=== PATIENT | male | born 1945 | race Caucasian/White ===

== ENCOUNTER 2016-09-26 11:11 | Emergency (ER) | payer MEDICARE, OTHER ==
[2016-09-26] MEDS ORDERED: Sodium Chloride 0.9% 10 ML Syringe FLUSH PRN (12:05)
[2016-09-26] MEDS ORDERED: Ondansetron 4 MG/2 ML SDV IVPUSH ONE (12:06)
[2016-09-26] MEDS ORDERED: Sodium Chloride 0.9% 1,000 ML IV ONE ×2 (12:06→13:36)
[2016-09-26] MEDS ORDERED: HYDROmorphone 1 MG/ML Syringe IVPUSH ONE ×2 (12:06→14:19)
[2016-09-26] MEDS ORDERED: Ketorolac 30 MG/ML SDV IVPUSH ONE (12:07)
[2016-09-26 12:52] LABS: CHLORIDE,CL 104 mmol/L (98-107); SODIUM,NA 140 mmol/L (136-145)
[2016-09-26] MEDS ORDERED: Tamsulosin 0.4 MG Cap.ER PO ONE (14:20)
[2016-09-26] MEDS ORDERED: Take Home: Acetaminophen/HYDROcodone 325-10 MG, 5 Tab Pack PO ONE (14:21)
[2016-09-26 14:46] VITALS: BP 170/81
--- NOTE | 2016-09-26 21:22 | ER ---
Date of Service: 09/26/2016 SUBJECTIVE: Ren presents to the emergency room with right-sided flank pain. The patient states this started last night. The patient states that he has a history of kidney stones and states the discomfort is similar to what he has experienced in the past. He states the discomfort radiates into the right side of his abdomen. States he is not experiencing any fever, chills, diarrhea, or hematuria. PAST MEDICAL HISTORY: Dyslipidemia. MEDICATIONS: Aspirin, Zocor, and Klonopin. ALLERGIES: NKDA. REVIEW OF SYSTEMS: General: No fever or chills. HEENT: No sore throat, rhinorrhea, congestion. Respiratory: No shortness breath. Cardiac: Denies any substernal chest pain. No jaw, arm, neck, or back pain. GI: Please see history of present illness. Denies any melena, hematochezia, or hematemesis. : Please see history of present illness. Denies any dysuria. Musculoskeletal: No myalgias or arthralgias. Neurologic: No fainting, blackouts, or lightheadedness. PHYSICAL EXAMINATION: General: This is a 70-year-old male patient, in no acute distress. Vital Signs: Initially blood pressure was 188/81, heart rate 64, respiratory rate 16, O2 saturations 98%. Skin: Warm, pink, and dry. HEENT: Head is normocephalic, atraumatic. Mouth, oral mucosa is moist. Lungs: Clear to auscultation. Heart: Regular rate and rhythm. Abdomen: Soft, nontender. There is no hepatosplenomegaly or masses noted. Extremities: Without edema. Neurologic: He is alert and oriented, answers all questions appropriately. His speech is fluent. His gait is within normal limits. LABORATORY DATA: WBCs 10.4, hemoglobin is 14.5, platelets are 310. Chemistry; sodium is 140, potassium is 4.2, chloride is 104, bicarb is 25, BUN is 19, creatinine is 1.3. GFR is 54, glucose is 124, calcium is 9.8, corrected calcium is 9.3, total bilirubin is 0.6, AST is 13, ALT is 27, alkaline phosphatase 118, total protein is 8.1, albumin is 4.6. Urinalysis reveals a slightly cloudy specimen. Specific gravity after a liter of normal saline is 1.020. Negative for protein, glucose, and ketones, did have trace of occult blood. Negative for nitrites and bilirubin, also negative for leukocyte esterase. Did have 5-10 rbc's per high-power field. CT scan of the patient's abdomen and pelvis was obtained. He did have evidence of 4 mm obstructing ureteral stone at the right UVJ. There was also mild hydronephrosis associated with this. EMERGENCY ROOM COURSE: IV access was established. He was given 2 L of normal saline IV and was given Zofran 4 mg IV for nausea and Toradol 30 mg IV for pain. He was also given Dilaudid 1 mg in 2 separate doses for further pain control. He stated that his pain was down to near 0 at the time of discharge. ASSESSMENT: A 4 mm right-sided kidney stone with mild hydronephrosis. PLAN: The patient was started on Flomax 0.4 mg IV and he has Percocet at home from a previous surgery, which he will use for pain. He was given a strainer to strain his urine, collect the stones and bring to the clinic for analysis. He is to return if the discomfort is unrelenting or if he is continuing to have discomfort after 3 to 4 days. All questions were answered. MWK: 09/26/2016 15:53:04 MODL: 09/26/2016 21:16:20 /[id number]
== END 2016-09-26 15:25 | disposition home or self-care (01) ==
LOC: VM.ED 11:11
DX: N13.2 Hydronephrosis with renal and ureteral calculous obstruction (principal); Z79.82 Long term (current) use of aspirin
CPT/HCPCS: 74176; 80053; 81001; 85025; 96361; 96374; 96375; 96376; 99284; A9270; J1170; J1885; J2405; J7030

== ENCOUNTER 2017-02-13 11:41 | Emergency (ER) | payer MEDICARE, OTHER ==
[2017-02-13] MEDS ORDERED: Sodium Chloride 0.9% 10 ML Syringe FLUSH PRN (11:52)
[2017-02-13] MEDS ORDERED: Sodium Chloride 0.9% 1,000 ML IV ONE (11:53)
[2017-02-13] MEDS ORDERED: Ketorolac 30 MG/ML SDV IVPUSH ONE (11:53)
[2017-02-13] MEDS ORDERED: diphenhydrAMINE 50 MG/ML SDV IVPUSH ONE (11:54)
[2017-02-13] MEDS ORDERED: Prochlorperazine 10 MG/2 ML SDV IV ONE (11:55)
[2017-02-13 12:30] LABS: CHLORIDE,CL 105 mmol/L (98-107); SODIUM,NA 142 mmol/L (136-145)
[2017-02-13 12:51] VITALS: BP 158/76
[2017-02-13] MEDS ORDERED: Acetaminophen/Butalbital/Caffeine 325-50-40 MG Tab ONE (13:25)
--- NOTE | 2017-02-14 12:48 | EDM.PDOC ---
ED HPI GENERAL MEDICAL PROBLEM - General Chief Complaint: Headache Stated Complaint: SPINAL TAP DONE ON TUESDAY HAS BAD HEADACHE Time Seen by Provider: 02/13/17 11:48 Source of Information: Reports: Patient, Family History Limitations: Reports: No Limitations - History of Present Illness INITIAL COMMENTS - FREE TEXT/NARRATIVE: Pt. persented to [facility] ER with headache for approx. 3 days. Pt. states that he underwent a diagnostic lumbar puncture at [facility] in [place], [place]. Pt. is experiencing autonomic dysfunction (positional tachycardia and bradycardia, episodes of hypotension) and is currently being worked up for this. Pt. states that approx. 1 hour after the lumbar puncture, she began to experience severe headache. He states that the discomfort has been constant and he is not experiencing any fever or chills, neck stiffness, or weakness. He states that he has increased his intake of caffeine but it has not helped his headache. Onset Date: 02/17/17 Duration: Constant Location: Reports: Head Severity: Severe Improves with: Reports: None Associated Symptoms: Reports: No Other Symptoms headache Pain Score (Numeric/FACES): 0 - Related Data Allergies Allergy/AdvReac Type Severity Reaction Status Date / Time No Known Allergies Allergy Verified 02/13/17 11:51 Home Meds: Home Meds Aspirin 81 mg PO DAILY 09/26/16 [History] ClonazePAM [KlonoPIN] 1 mg PO BEDTIME 09/26/16 [History] Simvastatin [Zocor] 20 mg PO DAILY 09/26/16 [History] Acetaminophen/Butalbital/Caff [Fioricet 325-50-40 MG] 1 tab PO Q4H #4 tablet 12/23 [Rx] Past Medical History - Past Health History Medical/Surgical History: Denies Medical/Surgical History Cardiovascular History: Reports: High Cholesterol Neurological History: Reports: Other (See Below) Other Neuro History: autonomic dysfunction - Past Surgical History Musculoskeletal Surgical History: Reports: Knee Replacement Other Musculoskeletal Surgeries/Procedures:: Total knees bilaterally Social & Family History - Tobacco Use Smoking Status *Q: Never Smoker - Recreational Drug Use Recreational Drug Use: No ED ROS GENERAL - Review of Systems Review Of Systems: See Below Constitutional: Reports: No Symptoms HEENT: Reports: No Symptoms Respiratory: Reports: No Symptoms Cardiovascular: Reports: No Symptoms Endocrine: Reports: No Symptoms GI/Abdominal: Reports: Nausea : Reports: No Symptoms Musculoskeletal: Reports: No Symptoms Skin: Reports: No Symptoms Neurological: Reports: Headache Psychiatric: Reports: No Symptoms Hematologic/Lymphatic: Reports: No Symptoms - Physical Exam Exam: See Below General Appearance: Alert, WD/WN, No Apparent Distress Eye Exam: Bilateral Eye: EOMI, Normal Fundi, Normal Inspection, PERRL Ears: Normal External Exam, Normal Canal, Hearing Grossly Normal Nose: Normal Inspection, Normal Mucosa, No Blood Throat/Mouth: Normal Inspection, Normal Lips, Normal Teeth, Normal Gums, Normal Oropharynx, Normal Voice, No Airway Compromise Head Exam: Atraumatic, Normocephalic Neck: Normal Inspection, Supple, Non-Tender, Full Range of Motion Respiratory/Chest: No Respiratory Distress, Lungs Clear, Normal Breath Sounds, No Accessory Muscle Use, Chest Non-Tender Cardiovascular: Normal Peripheral Pulses, Regular Rate, Rhythm, No Edema, No JVD GI/Abdominal: Normal Bowel Sounds, Soft, Non-Tender, No Organomegaly, No Distention, No Mass Rectal (Males) Exam: Deferred Neuro Exam (Abbreviated): Alert, Oriented, CN II-XII Intact, Normal Cognition, Normal Gait, Normal Reflexes, No Motor/Sensory Deficits, Slow to Respond DTR: 2+: Bicep (R), Bicep (L), Tricep (R), Tricep (L), Patella (R), Patella (L) , Achilles (R), Achilles (L) Back Exam: Normal Inspection, Full Range of Motion Extremities: Normal Inspection, Normal Range of Motion, Non-Tender, No Pedal Edema Psychiatric: Normal Affect, Normal Mood Skin Exam: Warm, Dry, Intact, Normal Color, No Rash Course - Vital Signs Last Recorded V/S: Last Vital Signs Temp 35.3 C 02/13/17 11:48 Pulse 69 02/13/17 12:50 Resp 18 02/13/17 11:48 BP 158/76 H 02/13/17 12:50 Pulse Ox 93 L 02/13/17 12:50 - Orders/Labs/Meds Labs: Laboratory Tests 02/13/17 02/13/17 Range/Units 12:03 12:03 WBC 8.3 (4.0-10.0) x10^3/uL RBC 4.78 (4.5-6.0) x10^6/uL Hgb 13.8 L (14.0-18.0) g/dL Hct 41.1 (40.0-52.0) % MCV 86.0 (78.0-93.0) fL MCH 28.9 (26.0-32.0) pg MCHC 33.6 (32.0-36.0) g/dL RDW Coeff of Marley 13.9 (10.0-15.0) % Plt Count 245 (130-400) x10^3/uL Neut % (Auto) 68.3 (50.0-80.0) % Lymph % (Auto) 21.0 L (25.0-50.0) % [place] % (Auto) 9.3 (2.0-11.0) % Eos % (Auto) 1.2 (0.0-4.0) % Baso % (Auto) 0.2 (0.2-1.2) % Sodium 142 (136-145) mmol/L Potassium 4.2 (3.5-5.1) mmol/L Chloride 105 (98-107) mmol/L Carbon Dioxide 28 (21-32) mmol/L BUN 21 H (7-18) mg/dL Creatinine 1.2 (0.70-1.30) mg/dL Est Cr Clr Drug Dosing TNP Estimated GFR (MDRD) 60 Glucose 127 H (74-106) mg/dL Calcium 9.1 (8.5-10.1) mg/dL Corrected Calcium 9.26 (8.5-10.1) mg/dL Total Bilirubin 0.5 (0.2-1.0) mg/dL AST 10 L (15-37) U/L ALT 19 (16-63) U/L Alkaline Phosphatase 81 (46-116) U/L C-Reactive Protein < 0.2 (<=0.9) mg/dL Total Protein 7.0 (6.4-8.2) g/dL Albumin 3.8 (3.4-5.0) g/dL Globulin 3.2 Albumin/Globulin Ratio 1.19 Meds: Medications Discontinued Medications Generic Name Dose Route Start Last Admin Trade Name Freq PRN Reason Stop Dose Admin Diphenhydramine HCl 50 mg 02/13/17 11:54 02/13/17 12:10 Benadryl IVPUSH 02/13/17 11:55 50 mg ONETIME ONE Administration Sodium Chloride 1,000 mls @ 1,000 mls/hr 02/13/17 11:53 02/13/17 12:07 Normal Saline IV 02/13/17 12:52 1,000 mls/hr .BOLUS ONE Administration Chlorpromazine HCl 25 mg/ 51 mls @ 100 mls/hr 02/13/17 11:54 Sodium Chloride IV 02/13/17 12:24 ONETIME ONE Ketorolac Tromethamine 30 mg 02/13/17 11:53 02/13/17 12:14 Toradol IVPUSH 02/13/17 11:54 30 mg ONETIME ONE Administration Prochlorperazine Edisylate 10 mg 02/13/17 11:55 02/13/17 12:18 Compazine IV 02/13/17 11:56 10 mg ONETIME ONE Administration Sodium Chloride 10 ml 02/13/17 11:52 Saline Flush FLUSH ASDIRECTED PRN Keep Vein Open - Radiology Interpretation Free Text/Narrative:: CT brain without contrast was negative for acute pathology - Re-Assessments/Exams Free Text/Narrative Re-Assessment/Exam: 02/14/17 13:10 IV access established. Pt. was given 1 liter of normal saline, 30mg toradol IV, 50mg benadryl IV, and 10mg of compazine IV. Pt. reported a prompt resolution of his headache, stating the pain decreased from "10" to "1". [facility] was consulted and advised conservative treatment at this point, and stated to refer pt. for a blood patch if symptomatic past . 02/14/17 13:29 Departure - Departure Time of Disposition: 12:50 Disposition: Home, Self-Care 01 Condition: Good Clinical Impression: Migraine - Discharge Information Prescriptions: Acetaminophen/Butalbital/Caff [Fioricet 325-50-40 MG] 1 tab PO Q4H #4 tablet Referrals: Jhony Burt MD [Primary Care Provider] - Forms: ED Department Discharge Additional Instructions: Take Fioricet 1 tablet every 4-6 hours as needed for headache. Fioricet 1 every 4-6 hours as needed for pain. Rest today in a quiet room, dark room with minimal distractions. If still having pain on , neurology advised getting a referral for a blood patch, but advised conservative therapy first. Return to ER if continued pain, difficulty with speech, ambulation, vision, or other worrisome signs/symptoms.
== END 2017-02-13 13:34 | disposition home or self-care (01) ==
LOC: VM.ED 11:41
DX: G43.909 Migraine, unspecified, not intractable, without status migrainosus (principal); E78.00 Pure hypercholesterolemia, unspecified; Z79.82 Long term (current) use of aspirin; Z79.899 Other long term (current) drug therapy
CPT/HCPCS: 70450; 80053; 85025; 86140; 96361; 96374; 96375; 99284; J0780; J1200; J1885; J7030; 99283-GF; A9270-GY

== ENCOUNTER 2019-10-11 07:15 | Day surgery (SDC) | payer MEDICARE, OTHER ==
[~2019-10-11 07:15] MED LIST: Lactated Ringers 1,000 ML IV SCH
[2019-10-11] MEDS ORDERED: fentaNYL 100 MCG/2 ML SDV ONE (08:03)
[2019-10-11] MEDS ORDERED: Propofol 200 MG/20 ML SDV ONE ×2 (08:03→08:30)
[2019-10-11 09:52] VITALS: BP 139/62; PULSE 50
--- NOTE | 2019-10-11 11:56 | OR ---
DATE OF SURGERY: 10/11/2019. REFERRING PROVIDER: Jessica Cloud DO. PRE-OPERATIVE DIAGNOSES: Colon cancer screening. The patient denies any current symptoms. Last colonoscopy was about 10 years ago per patient report. POST-OPERATIVE DIAGNOSES: 4 small polyps removed. 1. 4 mm polyp at 75 cm, removed with cold forceps. 2. 2 mm polyp at 45 cm, removed with cold forceps. 3. 2 mm polyp at 40 cm, removed with cold forceps. 4. 5 mm polyp at 30 cm, removed with hot snare. PROCEDURE: Colonoscopy with polypectomy x4 (1 using hot snare and 3 using cold forceps). SURGEON: Phillip Ramos M.D. ANESTHESIA: Monitored anesthesia care. BOWEL PREP: FairBrea Mcclure is a 73-year-old male who was brought to the endoscopy suite after discussing risks and benefits of the procedure. Informed consent was obtained for conscious sedation and colonoscopy with or without biopsy and/or polypectomy. We also discussed possibility of missed lesions. Pre-procedure exam was unremarkable. IV, oxygen, and monitors were placed. The patient was placed in the left lateral decubitus position. Sedation was administered and a digital rectal exam was performed which was unremarkable. Colonoscope was passed into the rectum and slowly advanced all the way to the cecum. The patient did have somewhat floppy colon. Cecum was viewed and photographed. The colonoscope was slowly withdrawn and the mucosa was closed observed in a direct circumferential manner. The ascending colon was unremarkable. The transverse colon revealed 4 mm polyp at 75 cm, removed with cold forceps. The descending colon revealed 2 mm polyps at 45 cm and 40 cm, both removed using cold forceps. The sigmoid colon revealed 5 mm polyp at 30 cm, removed with hot snare. This was taken off on the way in. Retroflexion was performed and rectal mucosa was unremarkable. Scope was removed. The patient tolerated the procedure well. The patient was monitored until that baseline status. Discharge instructions were reviewed and the patient was discharged in good condition. COMPLICATIONS: None. TOTAL TIME: 32 minutes. ESTIMATED BLOOD LOSS: About 1 mL. RECOMMENDATIONS/FOLLOW-UP: We will await results of path report to determine ideal followup interval. I would like to kindly thank Jessica Cloud for this referral. DMB: 10/11/2019 09:07:19 MODL: 10/11/2019 11:01:02 /[id number]
== END 2019-10-11 11:15 | disposition home or self-care (01) ==
LOC: VM.SDS 07:15
PROVIDERS: ATTEND Family Medicine
DX: Z12.11 Encounter for screening for malignant neoplasm of colon (principal); D12.3 Benign neoplasm of transverse colon; D12.4 Benign neoplasm of descending colon; D12.5 Benign neoplasm of sigmoid colon; I10 Essential (primary) hypertension; G47.33 Obstructive sleep apnea (adult) (pediatric); F45.8 Other somatoform disorders; I25.10 Atherosclerotic heart disease of native coronary artery without angina pectoris; E78.5 Hyperlipidemia, unspecified; Z79.82 Long term (current) use of aspirin; Z79.899 Other long term (current) drug therapy
CPT/HCPCS: 00812; 45380; 45385; 88305; J2704; J3010; J7120; 45384

== ENCOUNTER 2021-09-02 10:58 | Emergency (ER) | payer MEDICARE, OTHER ==
[2021-09-02] MEDS ORDERED: Sodium Chloride 0.9% 10 ML Syringe FLUSH PRN (11:19)
[2021-09-02] MEDS ORDERED: Nitroglycerin 0.4 MG Tab.SL SL ONE (11:20)
[2021-09-02] MEDS ORDERED: Aspirin 81 MG Tab.EC PO ONE (11:20)
[2021-09-02] MEDS ORDERED: Aspirin 81 MG Tab.Chew PO ONE (11:47)
[2021-09-02 11:52] LABS: ANION GAP 15.4 mmol/L (5-15)
[2021-09-02 14:20] VITALS: PULSE 64
[2021-09-02] MEDS ORDERED: Heparin Sodium/0.45% NaCl 25,000 UNITS/500 ML BAG IV STA (14:22)
[2021-09-02] MEDS ORDERED: Heparin Sodium 5,000 Units/ML Vial IVPUSH ONE (14:22)
[2021-09-02 15:01] VITALS: BP 153/85
== END 2021-09-02 14:56 | disposition short-term general hospital (02) ==
LOC: VM.ED 10:58
DX: I24.9 Acute ischemic heart disease, unspecified (principal); I25.10 Atherosclerotic heart disease of native coronary artery without angina pectoris; E78.00 Pure hypercholesterolemia, unspecified; I10 Essential (primary) hypertension; N40.0 Benign prostatic hyperplasia without lower urinary tract symptoms; Z79.82 Long term (current) use of aspirin; Z79.899 Other long term (current) drug therapy
CPT/HCPCS: 36415; 71045; 80053; 83880; 84484; 85025; 85610; 93005; 93010; 96365; 99284; 99285-25; A9270-GY; J1644

== ENCOUNTER 2022-03-16 15:29 | Emergency (ER) | payer MEDICARE, OTHER ==
[2022-03-16 15:39] VITALS: BP 168/85; PULSE 80
== END 2022-03-16 16:41 | disposition home or self-care (01) ==
LOC: VM.ED 15:29
DX: S43.402A Unspecified sprain of left shoulder joint, initial encounter (principal); I25.10 Atherosclerotic heart disease of native coronary artery without angina pectoris; E78.00 Pure hypercholesterolemia, unspecified; I10 Essential (primary) hypertension; Z79.82 Long term (current) use of aspirin; Z79.899 Other long term (current) drug therapy; W18.30XA Fall on same level, unspecified, initial encounter
CPT/HCPCS: 73030-LT; 99283

== ENCOUNTER 2025-01-31 09:33 | Day surgery (SDC) | payer MEDICARE, OTHER ==
[~2025-01-31 09:33] MED LIST changes: -Lactated Ringers 1,000 ML IV SCH; +Propofol 200 MG/20 ML SDV ONE; +fentaNYL 100 MCG/2 ML SDV ONE
[2025-01-31] MEDS: Lactated Ringers 1,000 ML IV SCH (09:46)
[2025-01-31] MEDS ORDERED: Propofol 200 MG/20 ML SDV ONE (11:38)
[2025-01-31 12:56] VITALS: BP 141/67; PULSE 50
== END 2025-01-31 13:28 | disposition home or self-care (01) ==
LOC: VM.SDS 09:33
PROVIDERS: ATTEND Family Medicine
DX: Z12.11 Encounter for screening for malignant neoplasm of colon (principal); K63.5 Polyp of colon; I25.10 Atherosclerotic heart disease of native coronary artery without angina pectoris; I10 Essential (primary) hypertension; E11.9 Type 2 diabetes mellitus without complications; E78.2 Mixed hyperlipidemia; Z88.8 Allergy status to other drugs, medicaments and biological substances; Z79.899 Other long term (current) drug therapy; Z86.0101 Personal history of adenomatous and serrated colon polyps
CPT/HCPCS: 00811; 82947; 88305; 99100; J2704; J3010; J7120